=== PATIENT | male | born 1955 | race Caucasian/White ===

== ENCOUNTER 2020-07-08 11:51 | Outpatient (CLI) | payer OTHER, SELFPAY ==
[2020-07-08 13:06] LABS: SARS-CoV-2 Ag Negative (Negative)
[2020-07-09 01:17] LABS: SARS-CoV-2 RNA PCR Negative
== END 2020-07-08 11:52 | disposition home or self-care (01) ==
LOC: CHSLAB 11:56
PROVIDERS: PCP Internal Medicine; Visit Provider Nurse Practitioner Family
DX: R05 Cough (principal); J44.9 Chronic obstructive pulmonary disease, unspecified
CPT/HCPCS: 87426; C9803; U0003; U0005

== ENCOUNTER 2020-08-02 15:30 | Outpatient (CLI) | payer OTHER, SELFPAY ==
--- NOTE | ~2020-08-02 | CT_ITS ---
EXAMINATION: CT lung screening DATE: 08/02/2020 15:53 INDICATION: Personal history of tobacco dependence, current smoker with 30 pack year history TECHNIQUE: Computed tomography (CT) of the chest was performed without intravenous contrast. The dose -length product (DLP) was 63.68 mGy-cm. Automated exposure control and iterative reconstruction techn [employer] were employed. COMPARISON: 06/11/2005 FINDINGS: There is severe emphysema. A 5 mm nodule of the left lower lobe is not significantly change d since the prior examination. No new pulmonary nodules are identified. There is no pleural effusion or pneumothorax. The lungs are free of acute opacities. No pathologically enlarged thoracic lymph nod es are identified. The heart size is normal. There is moderate thoracic spondylosis. IMPRESSION: 1. Lung-RADS category 2: Benign appearance or behavior. Continue annual screening with noncontrast lo w-dose chest CT in 12 months. Reviewed, dictated and finalized at location [facility]. IMPRESSION: 1. Lung-RADS category 2: Benign appearance or behavior. Continue annual screeni ng with noncontrast low-dose chest CT in 12 months.
== END 2020-08-02 15:31 | disposition home or self-care (01) ==
LOC: CHSIMG 15:31
PROVIDERS: PCP Internal Medicine; Visit Provider Internal Medicine
DX: Z12.2 Encounter for screening for malignant neoplasm of respiratory organs (principal); Z87.891 Personal history of nicotine dependence
CPT/HCPCS: 71271

== ENCOUNTER 2021-07-11 16:21 | Outpatient (CLI) | payer OTHER, SELFPAY ==
[2021-07-11 16:50] LABS: Appearance Urine Clear (Clear); Basophils Absolute Auto 0.04 K/mm3 (0.00-0.10); Basophils Percent Auto 0.4 % (0.0-1.0); Bilirubin Urine Negative (Negative); Color Urine Light Yellow (Yellow); Eosinophils Absolute Auto 0.14 K/mm3 (0.02-0.50); Eosinophils Percent Auto 1.5 % (1.0-6.0); Glucose Urine UA Negative (Negative); Hematocrit 39.8 % (40.0-54.0); Hemoglobin 13.8 g/dL (14.0-18.0); Immature Granulocyte Absolute 0.03 K/mm3 (0.00-0.00); Immature Granulocyte Percent A 0.3 % (0.0-0.0); Ketones Urine Trace (Negative); Leukocyte Esterase Ur Negative (Negative); Lymphocytes Absolute Auto 2.86 K/mm3 (1.10-4.50); Lymphocytes Percent Auto 31.5 % (18.0-42.0); Mean Corpuscular HGB Conc 34.7 g/dL (32.0-36.0); Mean Corpuscular Hemoglobin 33.6 pg (27.0-31.0); Mean Corpuscular Volume 96.8 fL (78.0-102.0); Mean Platelet Volume 10.6 fl (8.7-11.0); Monocytes Absolute Auto 1.09 K/mm3 (0.10-0.90); Neutrophils Absolute Auto 4.9 K/mm3 (1.7-7.2); Neutrophils Percent Auto 54.3 % (50.0-70.0); Nitrate Urine Negative (Negative); Platelet Count Result 323 K/mm3 (150-420); Protein Urine Negative (Negative); Red Blood Count 4.11 M/mm3 (4.70-6.10); Red Cell Distribution Width 12.4 % (11.6-14.4); Urobilinogen Urine 0.2 mg/dL (0.2-1.0); White Blood Count 9.1 K/mm3 (4.8-10.8); pH Urine 5.5 (5.0-8.0)
[2021-07-11 17:02] LABS: Add Urine Microscopic? YES; Blood Urine Trace-Intact (Negative); RBC Urine 0-2 /hpf (0-2); Squamous Epithelial Cell Urine Rare /hpf (Few); WBC Urine 0-3 /hpf (0-3)
[2021-07-11 17:03] LABS: Bacteria Urine Trace /hpf
[2021-07-11 18:12] LABS: Alanine Aminotransferase 30 U/L (16-63); Albumin Level 4.1 g/dL (3.4-5.0); Alkaline Phosphatase 76 U/L (46-116); Anion Gap 11 mmol/L (8-16); Aspartate Amino Transferase 15 U/L (15-37); Bilirubin,Total 0.7 mg/dL (0.00-1.00); Blood Urea Nitrogen 17 mg/dL (7-18); Calcium 8.8 mg/dL (8.5-10.1); Carbon Dioxide 25 mmol/L (21-32); Chloride 99 mmol/L (98-108); Cholesterol 199 mg/dL (0-200); Estimated Glomerular Filt Rate > 60; Glucose 95 mg/dL (70-99); HDL Direct 112 mg/dL (40-60); LDL Cholesterol Calculated 77 mg/dL (<130); Osmolality Calculated 281 mOsm/kg (285-295); Potassium 3.4 mmol/L (3.5-5.1); Prostate Specific Antigen 2.5 ng/mL (< OR = 4.0); Sodium 135 mmol/L (136-145); Triglycerides 51 mg/dL (0-150)
== END 2021-07-11 16:22 | disposition home or self-care (01) ==
LOC: CHSLAB 16:24
PROVIDERS: PCP Internal Medicine; Visit Provider Internal Medicine
DX: E78.5 Hyperlipidemia, unspecified (principal); I10 Essential (primary) hypertension; Z12.5 Encounter for screening for malignant neoplasm of prostate
CPT/HCPCS: 36415; 80053; 80061; 81001; 84153; 85025; G0103

== ENCOUNTER 2021-08-07 16:22 | Outpatient (CLI) | payer OTHER, SELFPAY ==
--- NOTE | ~2021-08-07 | CT_ITS ---
EXAMINATION:CT lung screening DATE: 08/07/2021 16:50 INDICATION: Personal history of nicotine dependence. Current smoker with 30 pack year history. TECHNIQUE: Computed tomography (CT) of the chest was performed without intravenous contrast. Automate d exposure control and iterative reconstruction technique were employed. The dose-length product (DLP ) was 101.50 mGy-cm. COMPARISON: Chest CT 08/02/2020 FINDINGS: There is severe emphysema. There is a stable 6 mm nodule in left lower lobe. There is a 2 m m nodule in right upper lobe. No pleural effusion. The heart size is normal. No pericardial effusion. There is mild thoracic spondylosis. IMPRESSION: 1. Lung-RADS category 2: Benign appearance or behavior. Continue annual screening with noncontrast lo w-dose chest CT in 12 months. Reviewed, dictated and finalized at location [facility]. IMPRESSION: 1. Lung-RADS category 2: Benign appearance or behavior. Continue annual screeni ng with noncontrast low-dose chest CT in 12 months.
== END 2021-08-07 16:23 | disposition home or self-care (01) ==
LOC: CHSIMG 16:23
PROVIDERS: PCP Internal Medicine; Visit Provider Internal Medicine
DX: Z12.2 Encounter for screening for malignant neoplasm of respiratory organs (principal); Z87.891 Personal history of nicotine dependence
CPT/HCPCS: 71271

== ENCOUNTER 2022-09-26 10:16 | Outpatient (CLI) | payer OTHER, SELFPAY ==
--- NOTE | ~2022-09-26 | CT_ITS ---
CT Scan of the Chest without Contrast: Clinical Indication: Lung cancer screening, personal history of nicotine dependence Technique: Contiguous sections were acquired throughout the chest without intravenous contrast. Dose reduction technique was used on this scan by utilizing automated exposure control and iterative recon struction technique. The dose-length product (DLP) was 70.23 mGy-cm. COMPARISON: 08/07/2021 and 08/02/2020 Findings: There is no evidence of any significant mediastinal, hilar or axillary lymphadenopathy. The mediastin al soft tissues appear normal. There is no evidence of pleural or pericardial effusion. Stable 6 mm nodule present in the left lower lobe (axial image 101). Severe emphysema present. Images through the upper abdomen reveal no abnormalities. Impression: Lung RADS 2: Benign appearance. 12 month follow-up screening CT advised. Severe emphysema. Reviewed, dictated and finalized at [facility]. Impression: Lung RADS 2: Benign appearance. 12 month follow-up screening CT advised. Severe emphysema.
== END 2022-09-26 10:17 | disposition home or self-care (01) ==
LOC: CHSIMG 10:19
PROVIDERS: PCP Internal Medicine; Visit Provider Internal Medicine
DX: Z12.2 Encounter for screening for malignant neoplasm of respiratory organs (principal); Z87.891 Personal history of nicotine dependence; J43.9 Emphysema, unspecified
CPT/HCPCS: 71271

== ENCOUNTER 2022-12-04 13:42 | Outpatient (CLI) | payer MEDICARE, SELFPAY ==
[2022-12-04 14:26] LABS: Fractional Inspired Oxygen 21 %; PO2 FiO2 Ratio Arterial Blood 3.84 %; Reduced Hemoglobin 4.1 %THb (0-5.0)
[2022-12-04 14:31] LABS: HCO3 ABG 23.8 mEq/l (22.0-26.0); PCO2 ABG 34.8 mmHg (35.0-45.0); PO2 ABG 80.6 mmHg (80.0-100.0); pH ABG 7.453 (7.350-7.450)
[2022-12-04 14:32] LABS: Alveolar/Arterial O2 Gradient 27.5 mmHg; Base Excess ABG 0.5 mEq/l (+/-2.0); Carboxyhemoglobin 4.9 % THb (0-2.0); Methemoglobin ABG 0.1 %THb (0-1.5); Oxyhemoglobin 90.9 % THb (90.0-100.0); Total Hemoglobin 15.8 g/dL (12.0-18.0)
[2022-12-04 14:33] LABS: Device ROOM AIR; Modified Allen's Test Pass; Oxygen Content ABG 20.2 %vol (16.0-22.0); Oxygen Saturation ABG 96.5 % (95.0-100.0); Site Drawn RIGHT RADIAL
--- NOTE | 2022-12-05 11:29 | WPDPFTINT ---
PFT Procedure Performed PFT Procedure Performed Spirometry with Pre/Post Bronchodilator Plethysmography (Lung Vol) Diffusing Cap (DLCO) Flow Vol Loop PFT Interpretation DOS: 12/04/2022 REQUESTING: Richie Mittal MD REASON FOR TESTING: dyspnea PULMONARY FUNCTION TESTS The repeatability of spirometry FEV1 pre-bronchodilator is grade 8. The repeat ability of spirometry FEV1 post bronchodilator is Grade B. Spirometry: Pre bronchodilator FEV1 is 0.54 L, extremely reduced, 19% predicted. Pre bronchodilator FVC is 1.95 L, 53%, moderately reduced. FEV1/ FVC ratio was 28%, reduced, consistent with airflow obstruction. After bronchodilator, FEV1 increases to 0.71 L, 25% predicted, 31% increase. After bronchodilator, FVC increases to 2.43 L, 65% predicted, 24% increase. This is a statistically significant increase as the FVC increases more than 200 mils and more than 12%. Lung volumes: Total lung capacity 7.62 L, 127%, elevated, consistent with mild hyperinflation. Residual volume is 5.36 L, 259% predicted, consistent with very severe air trapping. RV/TLC is 70%, elevated. Airway resistance is elevated. Diffusion: DLCO is 9.4, 37%, extremely reduced. DLCO / VA is 2.3, 53%, partially corrected but still moderately reduced. Flow volume loop: Extreme scooping of the expiratory limb. IMPRESSION: Extremely severe obstructive ventilatory impairment with good response to bronchodilator, mild hyperinflation with severe air trapping, severe diffusion impairment. No prior studies for comparison. Bess Zarate MD
--- NOTE | 2022-12-05 11:37 | WPDSIXMINUTE ---
Six Minute Walk Procedure Procedure Performed Pulmonary Stress Test (6 min walk) Six Minute Walk Six Minute Walk: DATE OF SERVICE: 12/04/2022 REQUESTING: Dr. Richie Mittal REASON FOR TESTING: dyspnea SIX MINUTE WALK This test was conducted per ATS guidelines. The patient walked while breathing room air and did not use any walking aids. The initial saturation was 96%, and initial heart rate was 67. The patient walked a total of 725 ft/ 220.9 m. he stopped at the 3 minutes henry for approximately 30 seconds due to shortness of breath. The saturation at the end of testing was 91%, and the heart rate was 91. IMPRESSION: The patient had a 5% decrease in saturation but did not meet threshold criteria for supplemental oxygen. Lowest saturation on the study was 91%. Distance walked is less than expected for his age. The patient did not require supplemental oxygen with exertion. Bess Zarate MD
== END 2022-12-04 13:43 | disposition home or self-care (01) ==
LOC: ANHPFT 13:42
PROVIDERS: PCP Internal Medicine; Visit Provider Internal Medicine Pulmonary Disease
DX: R06.00 Dyspnea, unspecified (principal); J40 Bronchitis, not specified as acute or chronic; Z72.0 Tobacco use; J44.9 Chronic obstructive pulmonary disease, unspecified; R94.2 Abnormal results of pulmonary function studies
CPT/HCPCS: 36600; 82375; 82805; 83050; 94060; 94618; 94726; 94729

== ENCOUNTER 2023-09-30 10:18 | Outpatient (CLI) | payer MEDICARE, SELFPAY ==
--- NOTE | ~2023-09-30 | CT_ITS ---
CT Scan of the Chest without Contrast: Clinical Indication: Lung cancer screening, nicotine dependence Technique: Contiguous sections were acquired throughout the chest without intravenous contrast. Dose reduction technique was used on this scan by utilizing automated exposure control and iterative recon struction technique. The dose-length product (DLP) was 67.43 mGy-cm. COMPARISON: 09/26/2022 Findings: There is no evidence of any significant mediastinal, hilar or axillary lymphadenopathy. The mediastin al soft tissues appear normal. There is no evidence of pleural or pericardial effusion. There is severe emphysema. Stable 6 mm left lower lobe pulmonary nodule peripherally. Images through the upper abdomen reveal no abnormalities. Impression: Lung RADS 2: Benign appearance. 12 month follow-up screening CT advised. Severe emphysema. Reviewed, dictated and finalized at [facility]. Impression: Lung RADS 2: Benign appearance. 12 month follow-up screening CT advised. Severe emphysema.
== END 2023-09-30 10:19 | disposition home or self-care (01) ==
PROVIDERS: PCP Internal Medicine; Visit Provider Internal Medicine Pulmonary Disease
DX: Z12.2 Encounter for screening for malignant neoplasm of respiratory organs (principal); Z87.891 Personal history of nicotine dependence; J43.9 Emphysema, unspecified
CPT/HCPCS: 71271

== ENCOUNTER 2024-10-02 09:01 | Outpatient (CLI) | payer MEDICARE, SELFPAY ==
--- NOTE | ~2024-10-02 | CT_ITS ---
CT Scan of the Chest without Contrast: Clinical Indication: Lung cancer screening, nicotine dependence Technique: Contiguous sections were acquired throughout the chest without intravenous contrast. Dose reduction technique was used on this scan by utilizing automated exposure control and iterative recon struction technique. The dose-length product (DLP) was 69.43 mGy-cm. COMPARISON: 09/30/2023 Findings: There is no evidence of any significant mediastinal, hilar or axillary lymphadenopathy. The mediastin al soft tissues appear normal. There is no evidence of pleural or pericardial effusion. Stable 6 mm left lower lobe nodule (axial image 106). Severe emphysema present. Images through the upper abdomen reveal no abnormalities. Impression: Lung RADS 2-S: Benign appearance. 12 month follow-up screening CT advised. Severe emphysema. Reviewed, dictated and finalized at [facility]. Impression: Lung RADS 2-S: Benign appearance. 12 month follow-up screening CT advised. Severe emphysema.
== END 2024-10-02 09:02 | disposition home or self-care (01) ==
LOC: ANHIMG 09:07
PROVIDERS: PCP Internal Medicine; Visit Provider Internal Medicine Pulmonary Disease
DX: Z12.2 Encounter for screening for malignant neoplasm of respiratory organs (principal); J43.9 Emphysema, unspecified; Z87.891 Personal history of nicotine dependence
CPT/HCPCS: 71271